=== PATIENT | male | born 1975 ===

== ENCOUNTER 2022-12-18 19:44 | Emergency (ER) | payer OTHER ==
[2022-12-18] MEDS ORDERED: Sodium Chloride 0.9% 10 ML Syringe FLUSH PRN (19:48)
[2022-12-18] MEDS ORDERED: Sodium Chloride 0.9% 1,000 ML IV ONE (19:49)
[2022-12-18 20:19] LABS: CHLORIDE,CL 101 mmol/L (98-107); ESTIMATED GFR 78 mL/min (>=60); SODIUM,NA 137 mmol/L (136-145)
[2022-12-18 20:40] LABS: CORONAVIRUS COVID-19 NAA NEGATIVE (NEGATIVE); RESPIRATORY SYNCYTIAL VIR NAA NEGATIVE (NEGATIVE)
== END 2022-12-18 21:03 | disposition home or self-care (01) ==
LOC: LL.ED 19:44
DX: R07.89 Other chest pain (principal); Z20.822 Contact with and (suspected) exposure to COVID-19
CPT/HCPCS: 0241U; 36415; 71045; 80053; 82550; 84484; 85025; 93005; 93010; 99284; 99285; J7030

== ENCOUNTER 2023-11-06 13:21 | Emergency (ER) | payer OTHER ==
[2023-11-06 13:49] LABS: BASOPHILS ABSOLUTE AUTO 0.08 K/uL (0.00-0.20); BASOPHILS PERCENT AUTO 0.9 % (0.0-2.0); EOSINOPHILS ABSOLUTE AUTO 0.11 K/uL (0.00-0.50); EOSINOPHILS PERCENT AUTO 1.2 % (0.0-5.0); HEMATOCRIT 45.8 % (39.0-49.0); HEMOGLOBIN 15.8 g/dL (13.1-16.8); LYMPHOCYTES PERCENT AUTO 31.3 % (10.0-50.0); MEAN CORPUSCULAR HEMOGLOBIN 29.2 pg (28.2-33.3); MEAN CORPUSCULAR HGB CONC 34.5 g/dL (31.7-36.0); MEAN CORPUSCULAR VOLUME 84.7 fL (84.0-98.0); MONOCYTES ABSOLUTE AUTO 0.78 K/uL (0.00-1.00); MONOCYTES PERCENT AUTO 8.4 % (2.0-14.0); NEUTROPHILS ABSOLUTE AUTO 5.39 K/uL (1.40-7.00); NEUTROPHILS PERCENT AUTO 58.2 % (45.0-80.0); PLATELET COUNT,PLT 452 K/uL (150-350); RED BLOOD CELL COUNT 5.41 M/uL (4.33-5.41); RED CELL DISTRIBUTION WIDTH 12.7 % (11.2-14.1); WHITE BLOOD CELL COUNT,WBC 9.3 K/uL (4.0-10.2)
[2023-11-06 14:09] LABS: ALANINE AMINOTRANSFERASE,ALT 56 U/L (12-78); ALBUMIN 4.5 g/dL (3.4-5.0); ALKALINE PHOSPHATASE 125 IU/L (46-116); ANION GAP 10.1 meq/L (7-15); ASPARTATE AMNIOTRANSFERASE,AST 26 U/L (15-37); BILIRUBIN TOTAL 0.7 mg/dL (0.2-1.0); BLOOD UREA NITROGEN,BUN 10 mg/dL (7-18); CALCIUM 9.3 mg/dL (8.5-10.1); CARBON DIOXIDE,CO2 26.9 mmol/L (21.0-32.0); CHLORIDE,CL 100 mmol/L (98-107); CREATININE 0.98 mg/dL (0.51-1.17); GLUCOSE RANDOM 104 mg/dL (70-99); POTASSIUM,K 3.8 mmol/L (3.5-5.1); PROTEIN TOTAL,TP 8.5 g/dL (6.4-8.2); SODIUM,NA 137 mmol/L (136-145)
[2023-11-06 14:13] LABS: ESTIMATED GFR 95 mL/min (>=60)
== END 2023-11-06 14:35 | disposition home or self-care (01) ==
LOC: LL.ED 13:21
DX: R07.89 Other chest pain (principal); I10 Essential (primary) hypertension
CPT/HCPCS: 36415; 80053; 84484; 85025; 93005; 99285

== ENCOUNTER 2023-12-29 10:54 | Day surgery (SDC) | payer OTHER ==
[2023-12-29] MEDS ORDERED: Sodium Chloride 0.9% 10 ML Syringe FLUSH PRN (11:00)
[2023-12-29] MEDS: Lactated Ringers 1,000 ML IV SCH (12:04)
[2023-12-29] MEDS ORDERED: Lidocaine 2% 5 ML SDV ONE (12:44)
[2023-12-29] MEDS ORDERED: Propofol 200 MG/20 ML SDV ONE (12:46)
[2023-12-29] MEDS ORDERED: Midazolam 1 MG/ML 2 ML SDV ONE (12:46)
== END 2023-12-29 14:46 | disposition home or self-care (01) ==
LOC: LL.SDS 10:54
PROVIDERS: ATTEND Surgery
DX: Z12.11 Encounter for screening for malignant neoplasm of colon (principal); D12.2 Benign neoplasm of ascending colon; D12.8 Benign neoplasm of rectum; K29.50 Unspecified chronic gastritis without bleeding; B96.81 Helicobacter pylori [H. pylori] as the cause of diseases classified elsewhere; K21.00 Gastro-esophageal reflux disease with esophagitis, without bleeding; I10 Essential (primary) hypertension; E03.9 Hypothyroidism, unspecified; Z79.899 Other long term (current) drug therapy
CPT/HCPCS: 00813; J2250; J2704; J3490; J7120

== ENCOUNTER 2024-06-04 17:48 | Emergency (ER) | payer OTHER ==
[2024-06-04] MEDS: Take Home: predniSONE 20 MG, 4 Tab Pack PO ONE (18:51)
== END 2024-06-04 18:57 | disposition home or self-care (01) ==
LOC: LL.ED 17:48
DX: R20.2 Paresthesia of skin (principal); E78.00 Pure hypercholesterolemia, unspecified; E66.9 Obesity, unspecified; Z79.899 Other long term (current) drug therapy; Z68.31 Body mass index [BMI] 31.0-31.9, adult
CPT/HCPCS: 99283; 99284; A9270

== ENCOUNTER 2024-06-22 19:55 | Emergency (ER) | payer BC, OTHER | END 2024-06-22 21:05 | disposition home or self-care (01) | LOC: LL.ED 19:55 | DX: J34.89 Other specified disorders of nose and nasal sinuses (principal); E66.9 Obesity, unspecified; Z79.899 Other long term (current) drug therapy | CPT/HCPCS: 99283 ==

== ENCOUNTER 2024-07-07 15:37 | Emergency (ER) | payer BC ==
[2024-07-07 16:04] LABS: BASOPHILS ABSOLUTE AUTO 0.05 K/uL (0.00-0.20); BASOPHILS PERCENT AUTO 0.5 % (0.0-2.0); EOSINOPHILS ABSOLUTE AUTO 0.04 K/uL (0.00-0.50); EOSINOPHILS PERCENT AUTO 0.4 % (0.0-5.0); HEMATOCRIT 45.7 % (39.0-49.0); LYMPHOCYTES ABSOLUTE AUTO 2.22 K/uL (0.50-3.50); MEAN CORPUSCULAR HEMOGLOBIN 29.5 pg (28.2-33.3); MEAN CORPUSCULAR VOLUME 84.3 fL (84.0-98.0); MONOCYTES ABSOLUTE AUTO 0.66 K/uL (0.00-1.00); MONOCYTES PERCENT AUTO 7.1 % (2.0-14.0); NEUTROPHILS ABSOLUTE AUTO 6.27 K/uL (1.40-7.00); PLATELET COUNT,PLT 448 K/uL (150-350); RED BLOOD CELL COUNT 5.42 M/uL (4.33-5.41); RED CELL DISTRIBUTION WIDTH 12.3 % (11.2-14.1); WHITE BLOOD CELL COUNT,WBC 9.2 K/uL (4.0-10.2)
[2024-07-07 16:27] LABS: ALBUMIN 4.7 g/dL (3.4-5.0); ANION GAP 11.2 meq/L (7-15); CALCIUM 9.8 mg/dL (8.5-10.1); CARBON DIOXIDE,CO2 27.8 mmol/L (21.0-32.0); CREATININE 0.9 mg/dL (0.51-1.17); EST CRCL DRUG DOSING (CG) 93.85 mL/min; POTASSIUM,K 4.1 mmol/L (3.5-5.1); PROTEIN TOTAL,TP 8.7 g/dL (6.4-8.2)
[2024-07-07 16:32] LABS: LACTIC ACID 0.7 mmol/L (0.4-2.0)
[2024-07-07 16:47] LABS: APPEARANCE,URINE CLEAR; BILIRUBIN,URINE NEGATIVE (NEGATIVE); COLOR,URINE YELLOW; GLUCOSE,URINE NEGATIVE (NEGATIVE); KETONES,URINE NEGATIVE (NEGATIVE); LEUKOCYTE ESTERASE,URINE NEGATIVE (NEGATIVE); NITRITE,URINE NEGATIVE (NEGATIVE); OCCULT BLOOD,URINE MODERATE (NEGATIVE); PROTEIN,URINE NEGATIVE (NEGATIVE); UROBILINOGEN,URINE 0.2 E.U./dL (0.2-1.0)
[2024-07-07 16:56] LABS: BACTERIA,URINE NOT SEEN /HPF (NONE TO FEW); EPITHELIAL CELLS,URINE NOT SEEN /LPF; MUCUS,URINE NOT SEEN /LPF (NEGATIVE); WBC,URINE NOT SEEN /HPF
[2024-07-07] MEDS: Ketorolac 10 MG Tab PO ONE (17:10)
== END 2024-07-07 18:00 | disposition home or self-care (01) ==
LOC: LL.ED 15:37
DX: R07.89 Other chest pain (principal); R42 Dizziness and giddiness; L98.8 Other specified disorders of the skin and subcutaneous tissue; E78.00 Pure hypercholesterolemia, unspecified; Z79.899 Other long term (current) drug therapy
CPT/HCPCS: 36415; 70450; 74019; 80053; 81001; 83605; 83735; 85025; 99284; A9270-GY; U0002

== ENCOUNTER 2024-07-28 19:27 | Emergency (ER) | payer BC ==
[2024-07-28 19:54] LABS: BASOPHILS PERCENT AUTO 0.6 % (0.0-2.0); EOSINOPHILS PERCENT AUTO 0.6 % (0.0-5.0); HEMATOCRIT 43.8 % (39.0-49.0); HEMOGLOBIN 15.2 g/dL (13.1-16.8); LYMPHOCYTES PERCENT AUTO 30.4 % (10.0-50.0); MEAN CORPUSCULAR HEMOGLOBIN 29.5 pg (28.2-33.3); MEAN CORPUSCULAR HGB CONC 34.7 g/dL (31.7-36.0); MONOCYTES PERCENT AUTO 7.9 % (2.0-14.0); NEUTROPHILS PERCENT AUTO 60.5 % (45.0-80.0); PLATELET COUNT,PLT 446 K/uL (150-350); RED BLOOD CELL COUNT 5.15 M/uL (4.33-5.41); RED CELL DISTRIBUTION WIDTH 12.4 % (11.2-14.1); WHITE BLOOD CELL COUNT,WBC 11.6 K/uL (4.0-10.2)
[2024-07-28 19:55] LABS: BASOPHILS ABSOLUTE AUTO 0.07 K/uL (0.00-0.20); EOSINOPHILS ABSOLUTE AUTO 0.07 K/uL (0.00-0.50); LYMPHOCYTES ABSOLUTE AUTO 3.54 K/uL (0.50-3.50); MONOCYTES ABSOLUTE AUTO 0.92 K/uL (0.00-1.00); NEUTROPHILS ABSOLUTE AUTO 7.03 K/uL (1.40-7.00)
[2024-07-28] MEDS ORDERED: Sodium Chloride 0.9% 10 ML Syringe FLUSH PRN (19:59)
[2024-07-28 20:12] LABS: ALANINE AMINOTRANSFERASE,ALT 64 U/L (12-78); ALBUMIN 4.5 g/dL (3.4-5.0); ALKALINE PHOSPHATASE 119 IU/L (46-116); AMYLASE 92 U/L (25-115); ANION GAP 9.9 meq/L (7-15); ASPARTATE AMNIOTRANSFERASE,AST 27 U/L (15-37); BILIRUBIN TOTAL 0.9 mg/dL (0.2-1.0); BLOOD UREA NITROGEN,BUN 14 mg/dL (7-18); CALCIUM 9.7 mg/dL (8.5-10.1); CARBON DIOXIDE,CO2 29.1 mmol/L (21.0-32.0); CHLORIDE,CL 102 mmol/L (98-107); CREATINE KINASE,CK 179 U/L (26-308); CREATININE 1.01 mg/dL (0.51-1.17); GLUCOSE RANDOM 88 mg/dL (70-99); LIPASE 35 U/L (16-77); POTASSIUM,K 3.8 mmol/L (3.5-5.1); PRO B-TYPE NATRIUR PEPT,BNPPRO 44 pg/mL (0-125); PROTEIN TOTAL,TP 8.4 g/dL (6.4-8.2); SODIUM,NA 141 mmol/L (136-145)
[2024-07-28 20:16] LABS: ESTIMATED GFR 92 mL/min (>=60)
[2024-07-28 20:18] LABS: PROTHROMBIN TIME 9.9 SEC (9.0-11.1)
== END 2024-07-28 20:50 | disposition home or self-care (01) ==
LOC: LL.ED 19:27
DX: R07.89 Other chest pain (principal); M94.0 Chondrocostal junction syndrome [Tietze]; E78.00 Pure hypercholesterolemia, unspecified; Z79.899 Other long term (current) drug therapy
CPT/HCPCS: 36415; 71045; 80053; 82150; 82550; 83690; 83735; 83880; 84484; 85025; 85610; 86140; 93005; 93010; 99284; 99285

== ENCOUNTER 2024-09-06 11:20 | Emergency (ER) | payer BC ==
[2024-09-06 11:49] LABS: BASOPHILS ABSOLUTE AUTO 0.08 K/uL (0.00-0.20); BASOPHILS PERCENT AUTO 0.8 % (0.0-2.0); EOSINOPHILS ABSOLUTE AUTO 0.21 K/uL (0.00-0.50); EOSINOPHILS PERCENT AUTO 2.2 % (0.0-5.0); HEMATOCRIT 47.2 % (39.0-49.0); HEMOGLOBIN 15.9 g/dL (13.1-16.8); IMMATURE GRAN ABSOLUTE AUTO 0.04 10^3/uL (0.00-0.50); IMMATURE GRAN PERCENT AUTO 0.4 % (0.0-5.0); LYMPHOCYTES ABSOLUTE AUTO 2.09 K/uL (0.50-3.50); LYMPHOCYTES PERCENT AUTO 22.2 % (10.0-50.0); MEAN CORPUSCULAR HEMOGLOBIN 28.9 pg (28.2-33.3); MEAN CORPUSCULAR HGB CONC 33.7 g/dL (31.7-36.0); MEAN CORPUSCULAR VOLUME 85.7 fL (84.0-98.0); MONOCYTES ABSOLUTE AUTO 0.69 K/uL (0.00-1.00); MONOCYTES PERCENT AUTO 7.3 % (2.0-14.0); NEUTROPHILS ABSOLUTE AUTO 6.32 K/uL (1.40-7.00); NEUTROPHILS PERCENT AUTO 67.1 % (45.0-80.0); PLATELET COUNT,PLT 378 K/uL (150-350); RED BLOOD CELL COUNT 5.51 M/uL (4.33-5.41); RED CELL DISTRIBUTION WIDTH 11.8 % (11.2-14.1); WHITE BLOOD CELL COUNT,WBC 9.4 K/uL (4.0-10.2)
[2024-09-06] MEDS: Iopamidol 612 MG/ML 100 ML Bottle IVPUSH STA (12:08)
[2024-09-06 12:22] LABS: ALBUMIN 4.2 g/dL (3.4-5.0); ANION GAP 8.3 meq/L (7-15); BILIRUBIN TOTAL 0.6 mg/dL (0.2-1.0); CALCIUM 9.3 mg/dL (8.5-10.1); CARBON DIOXIDE,CO2 29.7 mmol/L (21.0-32.0); CREATININE 0.89 mg/dL (0.51-1.17); EST CRCL DRUG DOSING (CG) 98.2 mL/min; POTASSIUM,K 4.6 mmol/L (3.5-5.1); PROTEIN TOTAL,TP 8.5 g/dL (6.4-8.2)
[2024-09-06 12:23] LABS: C-REACTIVE PROTEIN 0.47 mg/dL (0.05-0.30)
== END 2024-09-06 14:40 | disposition home or self-care (01) ==
LOC: LL.ED 11:20
DX: K51.211 Ulcerative (chronic) proctitis with rectal bleeding (principal); I10 Essential (primary) hypertension; E78.00 Pure hypercholesterolemia, unspecified; E66.9 Obesity, unspecified; Z79.899 Other long term (current) drug therapy; Z68.30 Body mass index [BMI] 30.0-30.9, adult
CPT/HCPCS: 36415; 74177; 80053; 85025; 86140; 99284; Q9967

== ENCOUNTER 2024-09-12 17:30 | Emergency (ER) | payer BC ==
[2024-09-12] MEDS: Aspirin 81 MG Tab.Chew PO ONE (17:43)
[2024-09-12 17:59] LABS: BASOPHILS ABSOLUTE AUTO 0.06 K/uL (0.00-0.20); BASOPHILS PERCENT AUTO 0.5 % (0.0-2.0); EOSINOPHILS ABSOLUTE AUTO 0.17 K/uL (0.00-0.50); EOSINOPHILS PERCENT AUTO 1.5 % (0.0-5.0); HEMATOCRIT 44.8 % (39.0-49.0); HEMOGLOBIN 15.4 g/dL (13.1-16.8); IMMATURE GRAN ABSOLUTE AUTO 0.03 10^3/uL (0.00-0.04); IMMATURE GRAN PERCENT AUTO 0.3 % (0.0-0.4); LYMPHOCYTES ABSOLUTE AUTO 2.57 K/uL (0.50-3.50); MEAN CORPUSCULAR HEMOGLOBIN 29.1 pg (28.2-33.3); MEAN CORPUSCULAR HGB CONC 34.4 g/dL (31.7-36.0); MEAN CORPUSCULAR VOLUME 84.7 fL (84.0-98.0); MONOCYTES ABSOLUTE AUTO 1.07 K/uL (0.00-1.00); MONOCYTES PERCENT AUTO 9.2 % (2.0-14.0); NEUTROPHILS ABSOLUTE AUTO 7.78 K/uL (1.40-7.00); NEUTROPHILS PERCENT AUTO 66.5 % (45.0-80.0); PLATELET COUNT,PLT 404 K/uL (150-350); RED BLOOD CELL COUNT 5.29 M/uL (4.33-5.41); RED CELL DISTRIBUTION WIDTH 11.7 % (11.2-14.1); WHITE BLOOD CELL COUNT,WBC 11.7 K/uL (4.0-10.2)
[2024-09-12] MEDS: Nitroglycerin 0.4 MG Tab.SL SL PRN (18:15)
[2024-09-12 18:22] LABS: ALANINE AMINOTRANSFERASE,ALT 57 U/L (12-78); ALBUMIN 4.4 g/dL (3.4-5.0); ALKALINE PHOSPHATASE 106 IU/L (46-116); ANION GAP 10.5 meq/L (7-15); ASPARTATE AMNIOTRANSFERASE,AST 23 U/L (15-37); BILIRUBIN TOTAL 0.8 mg/dL (0.2-1.0); BLOOD UREA NITROGEN,BUN 14 mg/dL (7-18); CALCIUM 9.2 mg/dL (8.5-10.1); CARBON DIOXIDE,CO2 25.5 mmol/L (21.0-32.0); CHLORIDE,CL 102 mmol/L (98-107); CREATININE 0.94 mg/dL (0.51-1.17); EST CRCL DRUG DOSING (CG) 92.98 mL/min; GLUCOSE RANDOM 99 mg/dL (70-99); MAGNESIUM 2.1 mg/dL (1.8-2.4); POTASSIUM,K 4.1 mmol/L (3.5-5.1); PRO B-TYPE NATRIUR PEPT,BNPPRO 21 pg/mL (0-125); PROTEIN TOTAL,TP 8.4 g/dL (6.4-8.2); SODIUM,NA 138 mmol/L (136-145)
[2024-09-12] MEDS: Aluminum Hydroxide/Magnesium Hydroxide/Simethicone Susp 30 ML Cup PO ONE (18:33)
[2024-09-12] MEDS: Lidocaine 2% Viscous Solution 15 ML UD PO ONE (18:33)
[2024-09-12 18:41] LABS: ESTIMATED GFR 100 mL/min (>=60)
[2024-09-12] MEDS: Ketorolac 15 MG/ML SDV IVPUSH ONE (19:21)
[2024-09-12] MEDS: Pantoprazole 40 MG Vial IVPUSH ONE (19:22)
[2024-09-12] MEDS: Orphenadrine 60 MG/2 ML Inj IV ONE (19:22)
[2024-09-12] MEDS: Sodium Chloride 0.9% 10 ML Syringe FLUSH PRN (19:23)
[2024-09-12] MEDS: Ketorolac 30 MG/ML SDV IVPUSH ONE (19:34)
[2024-09-12] MEDS: Sucralfate 1 GM Tab PO ONE (19:45)
== END 2024-09-12 19:55 | disposition home or self-care (01) ==
LOC: LL.ED 17:30
DX: M54.2 Cervicalgia (principal); M25.512 Pain in left shoulder; I10 Essential (primary) hypertension; E78.00 Pure hypercholesterolemia, unspecified; E66.9 Obesity, unspecified; Z79.899 Other long term (current) drug therapy; Z68.31 Body mass index [BMI] 31.0-31.9, adult
CPT/HCPCS: 36415; 71046; 80053; 83735; 83880; 84484; 85025; 85379; 93005; 93010; 96374; 96375; 99284; 99285-25; A9270-GY; J1885; J2360; J2470

== ENCOUNTER 2024-09-23 11:58 | Emergency (ER) | payer BC | END 2024-09-23 13:16 | disposition home or self-care (01) | LOC: LL.ED 11:58 | DX: J01.90 Acute sinusitis, unspecified (principal); I10 Essential (primary) hypertension; E78.00 Pure hypercholesterolemia, unspecified; E66.9 Obesity, unspecified; Z79.899 Other long term (current) drug therapy; Z68.30 Body mass index [BMI] 30.0-30.9, adult | CPT/HCPCS: 99283 ==

== ENCOUNTER 2024-10-13 19:09 | Emergency (ER) | payer BC ==
[2024-10-13 19:36] LABS: BASOPHILS ABSOLUTE AUTO 0.05 K/uL (0.00-0.20); BASOPHILS PERCENT AUTO 0.5 % (0.0-2.0); EOSINOPHILS ABSOLUTE AUTO 0.14 K/uL (0.00-0.50); EOSINOPHILS PERCENT AUTO 1.3 % (0.0-5.0); HEMATOCRIT 48.5 % (39.0-49.0); HEMOGLOBIN 16.6 g/dL (13.1-16.8); IMMATURE GRAN ABSOLUTE AUTO 0.02 10^3/uL (0.00-0.04); IMMATURE GRAN PERCENT AUTO 0.2 % (0.0-0.4); LYMPHOCYTES ABSOLUTE AUTO 2.87 K/uL (0.50-3.50); LYMPHOCYTES PERCENT AUTO 27.5 % (10.0-50.0); MEAN CORPUSCULAR HEMOGLOBIN 29.2 pg (28.2-33.3); MEAN CORPUSCULAR HGB CONC 34.2 g/dL (31.7-36.0); MEAN CORPUSCULAR VOLUME 85.2 fL (84.0-98.0); MONOCYTES ABSOLUTE AUTO 0.72 K/uL (0.00-1.00); MONOCYTES PERCENT AUTO 6.9 % (2.0-14.0); NEUTROPHILS ABSOLUTE AUTO 6.65 K/uL (1.40-7.00); NEUTROPHILS PERCENT AUTO 63.6 % (45.0-80.0); PLATELET COUNT,PLT 496 K/uL (150-350); RED BLOOD CELL COUNT 5.69 M/uL (4.33-5.41); RED CELL DISTRIBUTION WIDTH 11.7 % (11.2-14.1); WHITE BLOOD CELL COUNT,WBC 10.5 K/uL (4.0-10.2)
[2024-10-13 19:45] LABS: APPEARANCE,URINE CLEAR; BILIRUBIN,URINE NEGATIVE (NEGATIVE); COLOR,URINE YELLOW; GLUCOSE,URINE NEGATIVE (NEGATIVE); KETONES,URINE NEGATIVE (NEGATIVE); LEUKOCYTE ESTERASE,URINE NEGATIVE (NEGATIVE); NITRITE,URINE NEGATIVE (NEGATIVE); OCCULT BLOOD,URINE MODERATE (NEGATIVE); PROTEIN,URINE NEGATIVE (NEGATIVE); UROBILINOGEN,URINE 0.2 E.U./dL (0.2-1.0)
[2024-10-13 20:06] LABS: BACTERIA,URINE NOT SEEN /HPF (NONE TO FEW); EPITHELIAL CELLS,URINE RARE /LPF; RBC,URINE 0-5 /HPF; WBC,URINE NOT SEEN /HPF
[2024-10-13 20:09] LABS: ALANINE AMINOTRANSFERASE,ALT 81 U/L (12-78); ALBUMIN 4.9 g/dL (3.4-5.0); ALKALINE PHOSPHATASE 128 IU/L (46-116); ASPARTATE AMNIOTRANSFERASE,AST 31 U/L (15-37); BILIRUBIN TOTAL 0.9 mg/dL (0.2-1.0); BLOOD UREA NITROGEN,BUN 9 mg/dL (7-18); C-REACTIVE PROTEIN 0.25 mg/dL (0.05-0.30); CALCIUM 10.2 mg/dL (8.5-10.1); CARBON DIOXIDE,CO2 29.5 mmol/L (21.0-32.0); CHLORIDE,CL 96 mmol/L (98-107); CREATININE 1.01 mg/dL (0.51-1.17); GLUCOSE RANDOM 102 mg/dL (70-99); MAGNESIUM 1.9 mg/dL (1.8-2.4); POTASSIUM,K 4.1 mmol/L (3.5-5.1); PROTEIN TOTAL,TP 9.3 g/dL (6.4-8.2); SODIUM,NA 136 mmol/L (136-145)
[2024-10-13 20:11] LABS: ANION GAP 14.6 meq/L (7-15); ESTIMATED GFR 91 mL/min (>=60)
[2024-10-13] MEDS: Iopamidol 612 MG/ML 100 ML Bottle IVPUSH ONE (21:05)
[2024-10-13] MEDS: Diatrizoate Meglumine/Diatrizoate Sodium 37% 30 ML Bottle PO ONE (21:05)
== END 2024-10-13 22:40 | disposition home or self-care (01) ==
LOC: LL.ED 19:09
DX: R10.32 Left lower quadrant pain (principal); I10 Essential (primary) hypertension; E78.00 Pure hypercholesterolemia, unspecified; E66.9 Obesity, unspecified; Z79.899 Other long term (current) drug therapy
CPT/HCPCS: 36415; 74177; 80053; 81001; 82272; 82306; 83605; 83735; 85025; 86140; 99284; Q9963; Q9967

== ENCOUNTER 2024-11-08 07:50 | Day surgery (SDC) | payer BC ==
[~2024-11-08 07:50] MED LIST: Midazolam 1 MG/ML 2 ML SDV ONE; Propofol 200 MG/20 ML SDV ONE
[2024-11-08] MEDS ORDERED: Sodium Chloride 0.9% 10 ML Syringe FLUSH PRN (08:00)
[2024-11-08] MEDS: Lactated Ringers 1,000 ML IV SCH (08:30)
== END 2024-11-08 10:16 | disposition home or self-care (01) ==
LOC: LL.SDS 07:50
PROVIDERS: ATTEND Surgery
DX: R10.9 Unspecified abdominal pain (principal); I10 Essential (primary) hypertension; E78.2 Mixed hyperlipidemia; E55.9 Vitamin D deficiency, unspecified; K21.9 Gastro-esophageal reflux disease without esophagitis
CPT/HCPCS: 00811; 45380; J2250; J2704; J7120

== ENCOUNTER 2025-04-06 16:37 | Emergency (ER) | payer BC ==
[2025-04-06] MEDS: Iopamidol 612 MG/ML 100 ML Bottle IVPUSH ONE (17:09)
[2025-04-06 17:18] LABS: ALANINE AMINOTRANSFERASE,ALT 58.0 U/L (12-78); ASPARTATE AMNIOTRANSFERASE,AST 22.0 U/L (15-37); BILIRUBIN TOTAL 0.5 mg/dL (0.2-1.0); BLOOD UREA NITROGEN,BUN 12.0 mg/dL (7-18); CARBON DIOXIDE,CO2 26.9 mmol/L (21.0-32.0); CREATININE 0.96 mg/dL (0.51-1.17); EST CRCL DRUG DOSING (CG) 87.02 mL/min; GLUCOSE RANDOM 99.0 mg/dL (70-99); PROTEIN TOTAL,TP 8.5 g/dL (6.4-8.2)
[2025-04-06 17:19] LABS: BASOPHILS ABSOLUTE AUTO 0.07 K/uL (0.00-0.20); BASOPHILS PERCENT AUTO 0.7 % (0.0-2.0); EOSINOPHILS ABSOLUTE AUTO 0.32 K/uL (0.00-0.50); EOSINOPHILS PERCENT AUTO 3.0 % (0.0-5.0); IMMATURE GRAN ABSOLUTE AUTO 0.04 10^3/uL (0.00-0.04); IMMATURE GRAN PERCENT AUTO 0.4 % (0.0-0.4); LYMPHOCYTES ABSOLUTE AUTO 3.15 K/uL (0.50-3.50); LYMPHOCYTES PERCENT AUTO 29.7 % (10.0-50.0); MONOCYTES ABSOLUTE AUTO 0.86 K/uL (0.00-1.00); MONOCYTES PERCENT AUTO 8.1 % (2.0-14.0); NEUTROPHILS ABSOLUTE AUTO 6.16 K/uL (1.40-7.00); NEUTROPHILS PERCENT AUTO 58.1 % (45.0-80.0); PLATELET COUNT,PLT 400 K/uL (150-350); RED BLOOD CELL COUNT 5.49 M/uL (4.33-5.41); RED CELL DISTRIBUTION WIDTH 11.8 % (11.2-14.1); WHITE BLOOD CELL COUNT,WBC 10.6 K/uL (4.0-10.2)
[2025-04-06] MEDS: Ketorolac 15 MG/ML SDV IVPUSH ONE (17:25)
[2025-04-06] MEDS: Sodium Chloride 0.9% 10 ML Syringe FLUSH PRN (17:28)
[2025-04-06] MEDS: Ketorolac 15 MG/ML SDV ONE (17:29)
[2025-04-06 17:33] LABS: ESTIMATED GFR 97.0 mL/min (>=60); POTASSIUM,K 3.9 mmol/L (3.5-5.1); SODIUM,NA 136.0 mmol/L (136-145)
[2025-04-06 17:42] LABS: INR 0.9 (0.9-1.1)
[2025-04-06 17:59] LABS: CHLORIDE,CL 99.0 mmol/L (98-107)
[2025-04-06 18:33] VITALS: BP 167/95; PULSE 69
== END 2025-04-06 17:55 | disposition home or self-care (01) ==
LOC: LL.ED 16:37
DX: K52.9 Noninfective gastroenteritis and colitis, unspecified (principal); E78.00 Pure hypercholesterolemia, unspecified; I12.9 Hypertensive chronic kidney disease with stage 1 through stage 4 chronic kidney disease, or unspecified chronic kidney disease; E11.22 Type 2 diabetes mellitus with diabetic chronic kidney disease; N18.9 Chronic kidney disease, unspecified; E66.9 Obesity, unspecified; Z79.899 Other long term (current) drug therapy; Z68.34 Body mass index [BMI] 34.0-34.9, adult
CPT/HCPCS: 36415; 74177; 80053; 83735; 85025; 85610; 86140; 96374; 99284; 99284-25; J1885; Q9967